=== PATIENT | male | born 1945 | race Caucasian/White ===

== ENCOUNTER → 2019-08-20 09:39 | Outpatient (CLI) | payer MEDICARE, SELFPAY ==
--- NOTE | 2019-08-20 09:44 | ART_ITS ---
Reason For Study: claudication Procedure A bilateral lower extremity continuous wave Doppler with analog waveform analysis,segmental pressures,and ankle brachial indexes with exercise. Left Segmental Pressures Left brachial= 179mmHg. Left calf = 221mmHg. Left posterior tibial artery = 156mmHg. Left dorsalis pedis artery = 172mmHg. The left dorsalis pedis waveforms are biphasic. The left ankle waveforms are triphasic. Right Segmental Pressures Right brachial= 174mmHg. Right posterior tibial artery = 234mmHg. Right dorsalis pedis artery = 233mmHg. The right dorsalis pedis waveforms are triphasic. The right posterior tibial artery waveforms are triphasic. Indices The right ankle brachial index by the dorsalis pedis is 1.3. The right ankle brachial index by the posterior tibial artery is 1.31. TREE DOCTOR post exercise is noncompressible. The left ankle brachial index by the dorsalis pedis is .96. The left ankle brachial index by the posterior tibial artery is .87. The left dorsalis pedis index post exercise is .98. Interpretation Summary Triphasic Doppler waveforms are noted at ankle level on the right. Triphasic and biphasic Doppler waveforms are noted at ankle level on the left. Pulse-volume recordings appear satisfactory at all levels bilaterally, including low-thigh, calf, ankle, and digital levels. Resting ankle-brachial indices are normal bilaterally. The patient was ambulated for 5 minutes at a brisk pace, following which ankle pressures were obtained. Ankle pressures were noted to augment bilaterally following exercise, which is a normal physiological response. There is no evidence of significant arterial occlusive disease in the lower extremities bilaterally. Ordering Physician: Tristin Hein Performed By: GIOVANNI HOLLIDAY RVT
--- NOTE | 2019-08-20 09:44 | VDLE_ITS ---
Reason For Study: superficial varicosities RIGHT LEFT CFV is compressible, spontaneous, phasic, CFV is compressible, spontaneous, phasic, competent and demonstrates normal competent, and demonstrates normal augmentation. augmentation. FV is compressible, spontaneous, phasic, FV is compressible, spontaneous, phasic, competent and demonstrates normal competent and demonstrates normal augmentation. augmentation. POP V is compressible, spontaneous, phasic, POP V is compressible, spontaneous, phasic, competent and demonstrates normal competent and demonstrates normal augmentation. augmentation. T/P Trunk is compressible. T/P Trunk is compressible. PTV is compressible. PTV is compressible. RT PerV is compressible. LT PerV is compressible. SFJ is competent and measures .62 x .6 cm. SFJ is competent and measures .58 x .62 cm. GSV proximal thigh measures .25 x .3 cm. GSV proximal thigh measures .32 x .32 cm. GSV above knee is INCOMPETENT for greater GSV above knee is INCOMPETENT for greater than 0.5 seconds. than 0.5 seconds. GSV at knee measures .32 x .35 cm. GSV at knee measures .24 x .27 cm. GSV below knee is INCOMPETENT for greater GSV below knee is INCOMPETENT for greater than 0.5 seconds. than 0.5 seconds. SSV proximal calf is competent and SSV proximal calf is competent and measures .32 x .3 cm. measures .39 x .34 cm. Procedure Exam performed in department. The exam was diagnostic. Interpretation Summary Deep veins of the lower extremities are bilaterally patent and compressible segmentally. There is no evidence of deep vein thrombosis on either side. Valvular competence appears intact within the proximal deep venous systems bilaterally. The great saphenous veins appear bilaterally patent and compressible segmentally. Sapheno-femoral junctions are bilaterally competent . Segmental valvular incompetence is noted within the great saphenous veins bilaterally. Small saphenous veins are patent and competent bilaterally. Ordering Physician: Tristin Hein Performed By: Cash Rodriguez RVT
== END ==
PROVIDERS: Referring Provider Student in an Organized Health Care Education/Training Program; Visit Provider Student in an Organized Health Care Education/Training Program
DX: I73.9 Peripheral vascular disease, unspecified (principal); I83.90 Asymptomatic varicose veins of unspecified lower extremity; I77.1 Stricture of artery; M79.604 Pain in right leg; M79.605 Pain in left leg
CPT/HCPCS: 93924; 93970

== ENCOUNTER 2020-04-26 06:29 | Outpatient (RCR) | payer MEDICARE, SELFPAY ==
[2017-10-25 15:05] VITALS: BMI 32.0
== END 2020-04-26 23:59 ==
LOC: IMMUN 06:29
PROVIDERS: Referring Provider Family Medicine; Visit Provider Family Medicine
DX: Z23 Encounter for immunization (principal)
CPT/HCPCS: 0011A; 0012A

== ENCOUNTER → 2021-02-10 08:01 | Outpatient (CLI) | payer MEDICARE, SELFPAY ==
[2021-02-10] VITALS (7 sets, daily range): BP systolic 127–154; BP diastolic 73–86; PULSE 87–106; RESP 16; TEMP 35.8–36.1; O2SAT 97–98; BMI 27.8
== END ==
PROVIDERS: Referring Provider Internal Medicine Hematology & Oncology; Visit Provider Internal Medicine Hematology & Oncology
DX: D64.81 Anemia due to antineoplastic chemotherapy (principal)
CPT/HCPCS: 36430; 86850; 86900; 86901; 86920; 86922; J7040; P9016; A4216

== ENCOUNTER 2021-04-19 22:34 | Inpatient (IN) | payer MEDICARE, SELFPAY ==
[2021-04-19 22:35] VITALS: BP 113/73; PULSE 104; RESP 18; TEMP 36.4; O2SAT 100; BMI 22.4
[2021-04-20] VITALS (28 sets, daily range): BP systolic 92–133; BP diastolic 58–89; PULSE 91–121; RESP 14–20; TEMP 36.3–37.3; O2SAT 93–100; BMI 24.4
--- NOTE | 2021-04-20 00:52 | EKG12_ITS ---
Test Reason : DYSRHYTHMIA Blood Pressure : / mmHG Vent. Rate : 100 BPM Atrial Rate : 100 BPM P-R Int : 192 ms QRS Dur : 132 ms QT Int : 394 ms P-R-T Axes : 059 -50 054 degrees QTc Int : 508 ms Sinus rhythm with occasional Premature ventricular complexes Right bundle branch block Left anterior fascicular block Bifascicular block Septal infarct , age undetermined Abnormal ECG Confirmed by ANANDA PEDROZA, SUSSY ([id number]), order editor IRENE FITZGERALD ([id number]) on 04/21/2021 8:22:37 AM Referred By: NATASHA Confirmed By:SUSSY MALAVE MD
--- NOTE | 2021-04-20 00:54 | ED.RN ---
Addendum entered by Jammie Holman 04/20/21 01:16: BEFORE ADMINISTERING FLEET ENEMA, CONFIRMED TREATMENT WAS NECESSARY DUE TO PATIENT HAVING BM PREVIOUS TO TREATMENT. PER SHELLEY, TREATMENT CONTINUED. Original Note: THIS RN ASSISTED PT TO BATHROOM WITH ONE ASSIST. ADMINISTERED 1 FLEET ENEMA. PT HAD RIO RED BLOOD AND DARK STOOL. ASSISTED PT TO SINK TO WASH HANDS. PT STATED HE WAS DIZZY AND THIS RN ASSISTED PATIENT TO FLOOR AFTER A BRIEF LOC. SHELLEY DONALD, AT PATIENT SIDE TO ASSIST BACK TO BED. PT BP 133/78, HR 103, 99%O2. WILL CONTINUE TO MONITOR.
[2021-04-20] MEDS: Fleet Enema 1 ML RC (01:02)
[2021-04-20] MEDS: 0.9% Normal Saline 1,000 ML 1000 ML IV (01:09)
[2021-04-20 01:18] LABS: Absolute Lymphocyte Count 1.94 X10^3/uL (0.83-4.51); Absolute Neutrophil Count 14.6 X10^3/uL (2.0-7.7); Basophil# 0.14 X10^3/uL; Basophil% 0.8 % (0-1); Eosinophil# 0.21 X10^3/uL; Eosinophils% 1.1 % (0-5); Hematocrit 18.8 % (40-54); Hemoglobin 6.1 g/dL (13.0-16.5); Lymphocyte # 1.94 X10^3/ul (0.83-4.51); Lymphocyte % 10.5 % (19-41); Mean Corp Hgb Conc 32.4 g/dL (32-36); Mean Corpuscular Hgb 34.7 pg (27.0-32.0); Mean Corpuscular Volume 106.8 fL (80-94); Mean Platelet Vol. 10.5 fl (6.2-12.0); Monocyte# 1.44 X10^3/uL; Monocyte% 7.8 % (0-10); NRBC Flagged by Analyzer 0 % (0-5); Neutrophil # 14.64 X10^3/uL (2.7-7.7); Neutrophil % 79.3 % (47-70); POSITIVE MORPHOLOGY YES; Platelet Count 233 K/mm3 (150-450); RBC Distribution Width CV 23.2 % (11.6-14.6); RBC Distribution Width SD 90.2 fl (35.1-43.9); Red Blood Count 1.76 M/mm3 (4.6-6.2); White Blood Count 18.5 K/mm3 (4.4-11.0)
[2021-04-20 01:27] LABS: International Normalized Ratio 1.3; Prothrombin Time (Protime)PT. 15.7 SECONDS (11.7-14.9)
[2021-04-20 01:29] LABS: Partial Thromboplast Time 62.4 Seconds (24.1-36.2)
[2021-04-20 01:36] LABS: Differential Indicated SCAN CRITERIA MET
[2021-04-20 01:37] LABS: Anisocytosis 3+
[2021-04-20 01:39] LABS: Anion Gap 8 (5-15); BUN 34 mg/dL (7-18); BUN/Creat Ratio 55.4 RATIO (10-20); Calcium,Total 9.1 mg/dL (8.5-10.1); Chloride 105 mmol/L (98-107); Creatinine, Serum 0.61 mg/dL (0.70-1.30); EST Glomerular Filtration Rate 135 mL/min (>60); Est Glom Filt Rate - Afr Amer 163 mL/min (>60); Estimated Creatinine Clearance 68.35 ml/min; Glucose 112 mg/dL (74-106); Potassium 3.7 mmol/L (3.5-5.1); Sodium Level 137 mmol/L (136-145)
[2021-04-20 01:44] LABS: Lactic Acid 3.1 mmol/L (0.4-1.9)
--- NOTE | 2021-04-20 02:17 | RAD_ITS ---
STUDY: X-RAY - ABDOMEN/PELVIS REASON FOR EXAM: Male, 76 years old. Tube placement -- with 20cc GASTROGRAFIN TECHNIQUE: Portable, supine, AP abdomen radiograph after administration of 40 cc diluted contrast via percutaneous enterostomy tube COMPARISON: None. RAD/Abdomen Single View IMPRESSION: PE tube projects over a loop of small bowel. Contrast is noted following loops of small bowel. No finding of extravasated contrast. Electronically Signed: Marcos Mtz MD at 2:49 EST ,
[2021-04-20] MEDS: 0.9% Normal Saline 1,000 ML 999 ML IV (02:58)
--- NOTE | 2021-04-20 03:33 | EDS_ITS ---
HPI History of Present Illness Chief Complaint: General Illness Informant: patient and spouse/S.O. Narrative Narrative: Patient presents after pulling out his J-tube. Patient has a history of stomach cancer with a mass noted at the GE junction. states that on March 24 he had surgery at the [facility] for a jejunostomy tube placement. At that time they also took out the stent that was in his distal esophagus. Tonight he was lying in bed with his tube feeds running. He got up to go to the bathroom not remembering that his tube feeds were running and pulled out the tube. does note that the patient is scheduled to receive 2 units of blood in transfusion this morning. She states the patient had lab work and CAT scans done at [facility] on the morning of the . She said Dr. Garrett believes the patient is slowly bleeding somewhere. PFSH PFS Medical History Claudication of both lower extremities Neuropathy PVD (peripheral vascular disease) Stomach cancer Home Medications finasteride 5 mg PO DAILY 09/28/17 [History Last Taken Unknown] lorazepam [Ativan] 2 mg PO PRN PRN 09/28/17 [History Last Taken Unknown] losartan 100 mg PO DAILY 09/28/17 [History Last Taken Unknown] tamsulosin 0.4 mg PO DAILY 09/28/17 [History Last Taken Unknown] Vivonex RTF 60 ml FEEDING TUBE CONT 04/20/21 [History Last Taken Unknown] Allergy/AdvReac Type Severity Reaction Status Date / Time lisinopril AdvReac Other Verified 04/19/21 22:36 Family History Mother Aneurysm Breast cancer Surgical History History of total knee replacement (TKR) Social History Smoking Status: Former smoker ROS ROS ED Constitutional Constitutional ED: Denies chills or fever(s) Eyes Eyes: Denies change in vision ENT ENT ED: Denies sore throat Cardiovascular Cardiovascular: Denies chest pain Respiratory/Chest Respiratory/Chest: Denies cough or dyspnea Gastrointestinal Gastrointestinal: Reports constipation; Denies abdominal pain, diarrhea, nausea or vomiting Genitourinary Genitourinary ED: Denies dysuria Musculoskeletal Musculoskeletal: Denies back pain or neck pain Integumentary Denies rash Neurologic Neurologic: Denies headache(s) or weakness Allergic/Immunologic Allergic/Immunologic ED: Denies urticaria EXAM Physical Exam Const Vital Signs: 04/19/21 22:35 04/20/21 00:52 04/20/21 00:58 Temperature 97.6 F L Temperature Source Temporal Pulse Rate 104 H 108 H Respiratory Rate 18 16 Respiratory Effort Normal Respiratory Pattern Normal Blood Pressure 113/73 133/78 H Blood Pressure Mean 86 96 Blood Pressure Source Blood Pressure Position Blood Pressure Location Pulse Ox 100 97 Oxygen Delivery Method Room Air Room Air 04/20/21 02:45 04/20/21 02:49 04/20/21 03:04 Temperature 97.5 F L 97.7 F L 98.2 F Temperature Source Temporal Temporal Oral Pulse Rate 112 H 102 H 100 Respiratory Rate 15 17 20 H Respiratory Effort Respiratory Pattern Blood Pressure 122/87 H 117/75 120/86 H Blood Pressure Mean 98 89 97 Blood Pressure Source Monitor Monitor Blood Pressure Position Supine Semi-Fowlers Blood Pressure Location Right Arm Left Arm Pulse Ox 98 99 99 Oxygen Delivery Method Room Air Room Air Room Air Positive cachectic General Appearance ED: cachectic and pallor Nutritional Appearance: cachectic HEENT Reports moist mucous membranes Eyes PERRL and EOMs intact bilaterally Neck supple Chest Wall inspection of chest normal and palpation of chest normal Resp normal respiratory effort and clear to auscultation bilaterally Cardio regular rate and regular rhythm GI non-tender GI Narrative: Jejunostomy site in the left mid abdomen nontender. Palpation: soft Extremity normal to inspection Neuro oriented x3 Sensorium / Orientation: alert Skin General Skin Exam: pallor MDM MDM MDM Narrative Medical decision making narrative: I initially spoke with our local surgeon who suggested patient needs to go to a facility with IR capabilities to have a jejunostomy tube replaced as it is only 3-1/2 weeks old. I spoke with surgeon at [facility]. He told me to go ahead and try placing a Johnston catheter. If there is any resistance not force it or if we cannot get it and call them back for transfer. Otherwise a Johnston catheter can be used in place of the jejunostomy tube and he can contact them to have it formally replaced. When I went back to the room to do this patient was in the restroom. Nursing staff notes that he had been in the bathroom for some time and felt constipated. They were asking if he could have a fleets enema. Nurse did go in to do this. She noted very dark tarry stool in the commode. After she gave the fleets enema he did pass some bright red blood as well. When he was standing at the sink washing his hands he then had a syncopal episode. On my arrival to the room patient was alert and lying on the floor. He was helped to his feet and back to bed. He was placed in the Trendelenburg position. EKG, lab work, IV fluids ordered. Lab Data Attestation: I reviewed the patient's lab results. Labs: Laboratory Results - last 24 hr 04/19/21 04/20/21 04/20/21 13:30 01:04 01:04 WBC 18.5 H RBC 1.76 L Hgb 6.1 L Hct 18.8 L MCV 106.8 H MCH 34.7 H MCHC 32.4 RDW Std Deviation 90.2 H RDW Coeff of Nora 23.2 H Plt Count 233 MPV 10.5 Immature Gran % (Auto) 0.500 Neut % (Auto) 79.3 H Lymph % (Auto) 10.5 L [place] % (Auto) 7.8 Eos % (Auto) 1.1 Baso % (Auto) 0.8 Absolute Neuts (auto) 14.6 H Absolute Lymphs (auto) 1.94 Nucleated RBC % 0 Anisocytosis 3+ PT 15.7 H INR 1.3 APTT 62.4 H Sodium Potassium Chloride Carbon Dioxide Anion Gap BUN Creatinine Estim Creat Clear Calc Est GFR (MDRD) Af Amer Est GFR (MDRD) Non-Af BUN/Creatinine Ratio Glucose Lactic Acid Calcium Blood Type O POSITIVE Antibody Screen NEGATIVE Crossmatch See Detail 04/20/21 04/20/21 01:04 01:04 WBC RBC Hgb Hct MCV MCH MCHC RDW Std Deviation RDW Coeff of Nora Plt Count MPV Immature Gran % (Auto) Neut % (Auto) Lymph % (Auto) [place] % (Auto) Eos % (Auto) Baso % (Auto) Absolute Neuts (auto) Absolute Lymphs (auto) Nucleated RBC % Anisocytosis PT INR APTT Sodium 137 Potassium 3.7 Chloride 105 Carbon Dioxide 24.0 Anion Gap 8 BUN 34 H Creatinine 0.61 L Estim Creat Clear Calc 68.35 Est GFR (MDRD) Af Amer 163 Est GFR (MDRD) Non-Af 135 BUN/Creatinine Ratio 55.4 H Glucose 112 H Lactic Acid 3.1 H* Calcium 9.1 Blood Type Antibody Screen Crossmatch Radiography Diagnostic Testing: Clinical Impression(s) from Imaging Studies KUB X-Ray 04/20/21 02:17 IMPRESSION: PE tube projects over a loop of small bowel. Contrast is noted following loops of small bowel. No finding of extravasated contrast. Electronically Signed: Marcos Mtz MD at 2:49 EST , Treatment and Re-Evaluation Comments:: Hemoglobin is low at 6.1. It was 6.2 yesterday morning when it was checked. White count was 16 yesterday and 18 today. Chemistry studies reveal elevated BUN at 34. Lactic acid 3.1. Patient is given IV fluid bolus. The 2 units of packed RBCs the patient was due to receive in the morning are available in our blood bank and we will transfuse these. I was able to place a 16 [place] Johnston catheter in his jejunostomy tube site. Gastrografin was placed through this and x-ray reveals good positioning. I spoke with Dr. Mary BARRERA. Patient will be given Protonix but is able to stay here at [place] for further treatment. I will speak with the hospitalist. Discharge Plan Dx/Rx/DC Orders Clinical Impression: GI bleed, Syncopal episodes Disposition Disposition: Acute Care [facility]
--- NOTE | 2021-04-20 03:57 | HP.PCM.HOS_ITS ---
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 Patient had an esophageal stent that was clogged so that was removed. A J-tube was then placed on March 24, 2021. The J-tube dislodged and patient came to the emergency department. At the emergent department because patient complained of constipation he was given an enema. The enema was productive for stool. Reportedly patient stool was dark and he had some blood. He passed out while washing his hands at the sink after defecating. Upon recommendation from patient's surgeon at [facility] a Johnston catheter was placed in the PEG tube hole and tested with Gastrografin/KUB. On the morning of the day of presentation patient's hemoglobin was 6.2 and patient was scheduled to received 2 units of blood. At the emergency department his hemoglobin was 6.1 and the 2 units of blood was subsequently ordered to be given at the ED [facility] Medical History Claudication of both lower extremities Neuropathy PVD (peripheral vascular disease) Stomach cancer Home Medications aspirin 81 mg PO DAILY@0800 09/28/17 [History Last Taken Unknown] finasteride 5 mg PO DAILY 09/28/17 [History Last Taken Unknown] ibuprofen [Ibu] 400 mg PO Q6H PRN 09/28/17 [History Last Taken Unknown] lorazepam [Ativan] 2 mg PO PRN PRN 09/28/17 [History Last Taken Unknown] losartan 100 mg PO DAILY 09/28/17 [History Last Taken Unknown] tamsulosin 0.4 mg PO DAILY 09/28/17 [History Last Taken Unknown] Allergy/AdvReac Type Severity Reaction Status Date / Time lisinopril AdvReac Other Verified 04/19/21 22:36 Family History Mother Aneurysm Breast cancer Surgical History History of total knee replacement (TKR) Social History Smoking Status: Former smoker ROS ROS Narrative Constitutional: Denies fever, chills, and change in weight Eyes: Denies blurry vision, change in eye color, change in vision, discharge from eye(s), double vision, erythema, eye pain, loss of vision or other HEENT: Denies abnormal hearing, dysphagia, ear pain, epistaxis, headache(s), hearing loss, nasal congestion, nasal discharge, post nasal drip, sinus pressure, sore throat or other Cardiovascular: Denies chest pain or palpitations. Denies dyspnea on exertion, orthopnea and paroxysmal nocturnal dyspnea Respiratory/Chest: Denies cough, excessive phlegm production, shortness of breath with exertion and wheezing Gastrointestinal: Reports constipation. With melena and hematochezia. Denies abdominal pain, coffee ground emesis, diarrhea, dyspepsia, hematemesis, hematochezia, loose stools, nausea, vomiting or other Genitourinary: Denies burning urination, difficulty urinating, dysuria, hematuria, nocturia, urinary frequency, urinary hesitancy, urinary incontinence, urinary urgency or other Musculoskeletal: Denies arthralgias, back pain, joint pain, joint stiffness, joint swelling, myalgias, neck pain or other Neurologic: Denies abnormal gait, abnormal speech, confusion, disequilibrium, dizziness, focal weakness, headache(s), numbness, paresthesias, seizure-like activity, seizures, syncope, tingling, tremor(s) or other Psychiatric: Denies anxiety, depression, homicidal ideation, suicidal ideation or other Endocrinology: Denies change in body appearance, cold intolerance, excessive sweating, heat intolerance, polydipsia, polyuria or other Hematologic/Lymphatic: Denies lymphadenopathy or other Integumentary: Denies rashes Allergic/Immunologic: Denies rhinitis, hives, eczema, asthma or other Vital Signs Vital Signs Vital Signs: 04/19/21 22:35 04/20/21 00:52 04/20/21 00:58 Temperature 97.6 F L Temperature Source Temporal Pulse Rate 104 H 108 H Respiratory Rate 18 16 Respiratory Effort Normal Respiratory Pattern Normal Blood Pressure 113/73 133/78 H Blood Pressure Mean 86 96 Blood Pressure Source Blood Pressure Position Blood Pressure Location Pulse Ox 100 97 Oxygen Delivery Method Room Air Room Air 04/20/21 02:45 04/20/21 02:49 04/20/21 03:04 Temperature 97.5 F L 97.7 F L 98.2 F Temperature Source Temporal Temporal Oral Pulse Rate 112 H 102 H 100 Respiratory Rate 15 17 20 H Respiratory Effort Respiratory Pattern Blood Pressure 122/87 H 117/75 120/86 H Blood Pressure Mean 98 89 97 Blood Pressure Source Monitor Monitor Blood Pressure Position Supine Semi-Fowlers Blood Pressure Location Right Arm Left Arm Pulse Ox 98 99 99 Oxygen Delivery Method Room Air Room Air Room Air 04/20/21 03:52 Temperature Temperature Source Pulse Rate 106 H Respiratory Rate 18 Respiratory Effort Respiratory Pattern Blood Pressure 116/79 Blood Pressure Mean 91 Blood Pressure Source Blood Pressure Position Blood Pressure Location Pulse Ox 98 Oxygen Delivery Method Room Air Weight Weight: 79.379 kg Body Mass Index (BMI) 22.4 Physical Exam Narrative Physical exam: General: Well-nourished, well-developed. Head: Normocephalic, atraumatic, no tenderness Eyes: PERRLA, EOMI ENT, no trauma, moist mucous membranes, no rhinorrhea Neck: Nontender, full range of motion, no spinal tenderness, deformities, step- off CVS: Tachycardia. S1-S2 present. No murmur, gallop or rub. Respiratory : clear to auscultation bilaterally, chest wall nontender, no wheezing Abdomen: Soft, nontender, nondistended, normal bowel sounds, no masses : Deferred Back: Nontender, no CVA tenderness, no midline spinal tenderness, deformities, step-offs Extremities: Nontender full range of motion, no trauma Skin: Pallor, no trauma, abrasions Neuro: Alert, oriented, cranial nerves II through XII grossly intact. Psychiatry: Normal mood. Normal affect. Not depressed. Not anxious. Results Lab / Micro Data Result Diagrams: 04/20/21 01:04 04/20/21 01:04 Labs: Laboratory Results - last 24 hr 04/19/21 13:30: Blood Type O POSITIVE, Antibody Screen NEGATIVE, Crossmatch See Detail 04/20/21 01:04: WBC 18.5 H, RBC 1.76 L, Hgb 6.1 L, Hct 18.8 L, MCV 106.8 H, MCH 34.7 H, MCHC 32.4, RDW Std Deviation 90.2 H, RDW Coeff of Nora 23.2 H, Plt Count 233, MPV 10.5, Immature Gran % (Auto) 0.500, Neut % (Auto) 79.3 H, Lymph % (Auto) 10.5 L, [place] % (Auto) 7.8, Eos % (Auto) 1.1, Baso % (Auto) 0.8, Absolute Neuts (auto) 14.6 H, Absolute Lymphs (auto) 1.94, Nucleated RBC % 0, Anisocyt osis 3+ 04/20/21 01:04: PT 15.7 H, INR 1.3, APTT 62.4 H 04/20/21 01:04: Sodium 137, Potassium 3.7, Chloride 105, Carbon Dioxide 24.0, Anion Gap 8, BUN 34 H, Creatinine 0.61 L, Estim Creat Clear Calc 68.35, Est GFR (MDRD) Af Amer 163, Est GFR (MDRD) Non-Af 135, BUN/Creatinine Ratio 55.4 H, Glucose 112 H, Calcium 9.1 04/20/21 01:04: Lactic Acid 3.1 H* Micro: Microbiology 04/19/21 23:33 Nasal Secretion SARS-CoV-2 Antigen (Rapid) - Final Radiology Impression KUB X-Ray 04/20/21 02:17 IMPRESSION: PE tube projects over a loop of small bowel. Contrast is noted following loops of small bowel. No finding of extravasated contrast. Electronically Signed: Marcos Mtz MD at 2:49 EST , Assessment & Plan Assessment/Plan (1) Acute blood loss anemia: (2) Monoclonal gammopathies: (3) GI bleed: QUALIFIERS: GI bleed type/associated pathology: melena Qualified Code(s): K92.1 - Melena (4) Cancer of cardia: PLAN: Acute blood loss anemia Hemoglobin on presentation was 6.1. MCV is 106.8. Patient follows up with oncology. INR is 1.3. Admit to monitored bed on MedSurg 2 units of blood ordered at the ED. Repeat H&H 1 hour after second unit of blood has been transfused. Protonix ordered. Emergency further discussed the case with GI. GI consult placed. Will keep n.p.o. for now. Syncope Like secondary to GI bleed. Received fluid hydration at the emergency department. Blood transfusion as above. Hold home blood pressure medications. Malfunction of PEG tube PEG tube replaced at the emergency department. Follow-up KUB was visualized and independently interpreted. Contrast seen loops of small bowel. Leukocytosis Review of labs showed white count of 18.5. Likely reactive. Trend CBC. Cancer of cardia Patient follows up Dr. Garrett and reportedly has an appointment 04/20/2021. Consider discussing with Dr. Garrett as needed. DVT prophylaxis: SCDs ordered. Charges/Coding Visit Charges Inpatient E&M: 25732 Init Hosp L3
[2021-04-20 05:13] LABS: Reflex Lactate? Y
[2021-04-20 07:27] LABS: Lactic Acid 1.3 mmol/L (0.4-1.9)
--- NOTE | 2021-04-20 08:12 | PN.HOSP_ITS ---
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 Patient was found to have hemoglobin of 6.1 with melenic stools. Admitted to a monitored bed with consultation placed to GI Objective Data Objective Data Vital Signs: Vital Signs Temp Pulse Resp BP Pulse Ox 97.9 F 121 H 18 99/61 99 04/20/21 07:51 04/20/21 07:51 04/20/21 07:51 04/20/21 07:51 04/20/21 07:51 Oxygen Delivery Method Room Air Weight: 86.364 kg Body Mass Index (BMI) 24.4 Intake & Output: Intake and Output for Last 24 Hours 04/18/21 04/19/21 04/20/21 23:59 23:59 23:59 Intake Total 2510 / 2510 Balance 2510 / 2510 Lab / Micro Data Result Diagrams: 04/20/21 14:31 04/20/21 01:04 Labs: Laboratory Results - last 24 hr 04/19/21 13:30: Blood Type O POSITIVE, Antibody Screen NEGATIVE, Crossmatch See Detail 04/20/21 01:04: WBC 18.5 H, RBC 1.76 L, Hgb 6.1 L, Hct 18.8 L, MCV 106.8 H, MCH 34.7 H, MCHC 32.4, RDW Std Deviation 90.2 H, RDW Coeff of Nora 23.2 H, Plt Count 233, MPV 10.5, Immature Gran % (Auto) 0.500, Neut % (Auto) 79.3 H, Lymph % (Auto) 10.5 L, Kidder % (Auto) 7.8, Eos % (Auto) 1.1, Baso % (Auto) 0.8, Absolute Neuts (auto) 14.6 H, Absolute Lymphs (auto) 1.94, Nucleated RBC % 0, Anisocytosis 3+ 04/20/21 01:04: PT 15.7 H, INR 1.3, APTT 62.4 H 04/20/21 01:04: Sodium 137, Potassium 3.7, Chloride 105, Carbon Dioxide 24.0, Anion Gap 8, BUN 34 H, Creatinine 0.61 L, Estim Creat Clear Calc 68.35, Est GFR (MDRD) Af Amer 163, Est GFR (MDRD) Non-Af 135, BUN/Creatinine Ratio 55.4 H, Glucose 112 H, Calcium 9.1 04/20/21 01:04: Lactic Acid 3.1 H* 04/20/21 06:40: Lactic Acid 1.3 Micro: Microbiology 04/19/21 23:33 Nasal Secretion SARS-CoV-2 Antigen (Rapid) - Final Radiography Diagnostic Testing: Radiology Impression KUB X-Ray 04/20/21 02:17 IMPRESSION: PE tube projects over a loop of small bowel. Contrast is noted following loops of small bowel. No finding of extravasated contrast. Electronically Signed: Marcos Mtz MD at 2:49 EST , Physical Exam Narrative GENERAL: cooperative HEENT: Atraumatic; EYES; Anicteric, Normal Conjunctiva NECK; supple, normal thyroid, RESPIRATORY: Diminished to auscultation CARDIOVASCULAR: Regular S1 S2, GI: Feeding tube in situ (Johnston catheter) : No Renal angle tenderness; EXTREMITIES: No edema, no clubbing, MUSCULOSKELETAL: no muscle wasting NEURO: Awake; no lateralizing signs. 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 Patient was found to have hemoglobin of 6.1 with melenic stools. Admitted to a monitored bed with consultation placed to GI 1. Acute on chronic blood loss anemia as a result of patient underlying GI malignancy ?Patient hemoglobin on admission was 6.1. Consult was placed to GI patient unde rwent EGD by Dr. Hernandez on 04/20/2021 which demonstrated Completely obstructing, malignant esophageal tumor was found in the lower third of the esophagus. 2. Malfunctioning jejunostomy tube ?Patient surgeon at [facility] was contacted from the ED recommended placement of a Johnston catheter. Plan is to check with GI if okay for refeeding 3. Esophageal gastric adenocarcinoma of the esophageal GE junction -currently on chemo 4. History of aortic valve disease ?Aortic valve replacement 5. BPH ?Patient is on tamsulosin as well as finasteride continue 6. Hypertension - Blood pressure controlled, home medications continued with dose adjustment as needed 7. DVT prophylaxis ?SCDs only Charges/Coding Visit Charges Inpatient E&M: 19367 Subs Hosp L2
[2021-04-20] MEDS: Lactated Ringers 1,000 ML 15 ML IV (11:04)
--- NOTE | 2021-04-20 11:49 | CON.PCM.GI_ITS ---
HPI Consult Data Date of Consult: 04/20/21 HPI Narrative HPI Narrative: ANA RANGEL, is a 76 M who presents to the ED after his recently placed jejunostomy tube became dislodged. He has a past medical history significant for aortic valve replacement on anticoagulation and a esophagogastric adenocarcinoma of the esophagus and GE junction. He is currently on chemotherapy and he did receive radiation. While the patient was in the ED he passed out after having multiple episodes of black melanotic stool. His hemoglobin was determined to be 6.2 and on repeat it was 6.1. I was called for and management endoscopic evaluation. His J-tube was replaced with a 14 [place] Johnston catheter and is in place and is functioning well. All other 16 review of systems are negative except those pertinent positive mentioned HPI PFSH Medical History Claudication of both lower extremities Neuropathy PVD (peripheral vascular disease) Stomach cancer Home Medications aspirin 81 mg PO DAILY@0800 09/28/17 [History Last Taken Unknown] finasteride 5 mg PO DAILY 09/28/17 [History Last Taken Unknown] ibuprofen [Ibu] 400 mg PO Q6H PRN 09/28/17 [History Last Taken Unknown] lorazepam [Ativan] 2 mg PO PRN PRN 09/28/17 [History Last Taken Unknown] losartan 100 mg PO DAILY 09/28/17 [History Last Taken Unknown] tamsulosin 0.4 mg PO DAILY 09/28/17 [History Last Taken Unknown] Allergy/AdvReac Type Severity Reaction Status Date / Time lisinopril AdvReac Other Verified 04/19/21 22:36 Family History Mother Aneurysm Breast cancer Surgical History History of total knee replacement (TKR) Social History Smoking Status: Former smoker ROS Gastrointestinal Gastrointestinal: Reports melena Physical Exam Const alert General Appearance: cooperative Orientation / Consciousness: oriented to person HEENT hearing grossly normal bilaterally Head and Scalp: normal to inspection Face and Sinus: face symmetric Nose: external nose normal Mouth: oral and palatal mucosa normal Eyes conjunctivae normal General Eye: normal appearance of both eyes Neck full ROM General: normal visual inspection Lymph Lymphatic: no lymphadenopathy noted Chest inspection of chest normal and palpation of chest normal Chest: symmetrical chest wall rise Resp normal respiratory effort Effort and Inspection: able to speak in complete sentences Cardio regular rate GI non-distended GI Narrative: Jejunostomy tube in place Percussion: normal to percussion Rectal Exam: deferred Neuro Speech: speech normal Gait (Neuro): normal gait Lab / Micro Data Result Diagrams: 04/20/21 01:04 04/20/21 01:04 Labs: Laboratory Results - last 24 hr 04/19/21 13:30: Blood Type O POSITIVE, Antibody Screen NEGATIVE, Crossmatch See Detail 04/20/21 01:04: WBC 18.5 H, RBC 1.76 L, Hgb 6.1 L, Hct 18.8 L, MCV 106.8 H, MCH 34.7 H, MCHC 32.4, RDW Std Deviation 90.2 H, RDW Coeff of Nora 23.2 H, Plt Count 233, MPV 10.5, Immature Gran % (Auto) 0.500, Neut % (Auto) 79.3 H, Lymph % (Auto) 10.5 L, Alfalfa % (Auto) 7.8, Eos % (Auto) 1.1, Baso % (Auto) 0.8, Absolute Neuts (auto) 14.6 H, Absolute Lymphs (auto) 1.94, Nucleated RBC % 0, Anisocytosis 3+ 04/20/21 01:04: PT 15.7 H, INR 1.3, APTT 62.4 H 04/20/21 01:04: Sodium 137, Potassium 3.7, Chloride 105, Carbon Dioxide 24.0, Anion Gap 8, BUN 34 H, Creatinine 0.61 L, Estim Creat Clear Calc 68.35, Est GFR (MDRD) Af Amer 163, Est GFR (MDRD) Non-Af 135, BUN/Creatinine Ratio 55.4 H, Glucose 112 H, Calcium 9.1 04/20/21 01:04: Lactic Acid 3.1 H* 04/20/21 06:40: Lactic Acid 1.3 Micro: Microbiology 04/19/21 23:33 Nasal Secretion SARS-CoV-2 Antigen (Rapid) - Final Radiology Impression KUB X-Ray 04/20/21 02:17 IMPRESSION: PE tube projects over a loop of small bowel. Contrast is noted following loops of small bowel. No finding of extravasated contrast. Electronically Signed: Marcos Mtz MD at 2:49 EST , Assessment & Plan Assessment/Plan (1) GI bleed: QUALIFIERS: GI bleed type/associated pathology: melena Qualified Code(s): K92.1 - Melena PLAN: UGI bleed likely secondary to his already diagnosed of upper GI tract cancer of the esophagus. With his is tachycardia and elevated BUN creatinine ratio he should undergo an emergent upper endoscopy to evaluate his upper GI tract. He was explained alternatives, risk, benefits including not withstanding bleeding, infection, sepsis, perforation, need for emergent surgery . He will have an ASA of three. Charges/Coding Visit Charges Inpatient E&M: 18564 Init Hosp L2
--- NOTE | 2021-04-20 12:10 | OP.EGD_ITS ---
Patient Name: Sree Wiggins Procedure Date: 04/20/2021 11:09 AM Date of : 1945 Age: 76 Procedure: Upper GI endoscopy Indications: Melena Providers: Jose Francisco Hernandez DO Medicines: See the Anesthesia note for documentation of the administered medications Patient Profile: This is a 76 year old male. Refer to note in patient chart for documentation of history and physical. Patient has symptoms. Complications: No immediate complications. Procedure: Pre-Anesthesia Assessment: - Prior to the procedure, a History and Physical was performed, and patient medications and allergies were reviewed. The risks and benefits of the procedure and the sedation options and risks were discussed with the patient. All questions were answered and informed consent was obtained. Patient identification and proposed procedure were verified by the physician in the pre-procedure area. Mental Status Examination: alert and oriented. Airway Examination: normal oropharyngeal airway and neck mobility. Respiratory Examination: clear to auscultation. CV Examination: normal. Prophylactic Antibiotics: The patient does not require prophylactic antibiotics. Prior Anticoagulants: The patient has taken no previous anticoagulant or antiplatelet agents. ASA Grade Assessment: II - A patient with mild systemic disease. After reviewing the risks and benefits, the patient was deemed in satisfactory condition to undergo the procedure. The anesthesia plan was to use moderate sedation / analgesia (conscious sedation). Immediately prior to administration of medications, the patient was re-assessed for adequacy to receive sedatives. The heart rate, respiratory rate, oxygen saturations, blood pressure, adequacy of pulmonary ventilation, and response to care were monitored throughout the procedure. The physical status of the patient was re-assessed after the procedure. After obtaining informed consent, the endoscope was passed under direct vision. Throughout the procedure, the patient's blood pressure, pulse, and oxygen saturations were monitored continuously. The Endoscope was introduced through the mouth, and advanced to the lower third of esophagus. The upper GI endoscopy was extremely difficult due to a partially obstructing mass. The patient tolerated the procedure well. Moderate Sedation: Moderate (conscious) sedation was administered by the endoscopy nurse and supervised by the endoscopist. The patient's oxygen saturation, heart rate, blood pressure and response to care were monitored. Total physician intraservice time was 15 minutes. Scope In: 12:00:40 PM Scope Out: 12:05:32 PM Total Procedure Duration Time 0 hours 4 minutes 52 seconds Findings: A large, ulcerating mass with no bleeding and stigmata of recent bleeding was found in the lower third of the esophagus, 37 cm from the incisors. The mass was completely obstructing and circumferential. Impression: - Completely obstructing, malignant esophageal tumor was found in the lower third of the esophagus. - No specimens collected. Recommendation: - [facility]. - Resume previous diet. - Continue present medications. Procedure Code(s): --- Professional --- 53369, Esophagoscopy, flexible, transoral; diagnostic, including collection of specimen(s) by brushing or washing, when performed (separate procedure) 92185, 59, Moderate sedation services provided by the same physician or other qualified health customer care consultant performing the diagnostic or therapeutic service that the sedation supports, requiring the presence of an independent trained observer to assist in the monitoring of the patient's level of consciousness and physiological status; initial 15 minutes of intraservice time, patient age 5 years or older CPT copyright 2017 [employer] [place] [employer]. All rights reserved. The codes documented in this report are preliminary and upon synthetic chemist review may be revised to meet current compliance requirements. Jose Francisco Hernandez DO 04/20/2021 12:09:57 PM This report has been signed electronically. Number of Addenda: 1 Note Initiated On: 04/20/2021 11:09 AM Addendum Number: 1 Addendum Date: 11/14/2021 6:39:20 AM MAC was used for sedation during this procedure. Jose Francisco Hernandez DO 11/14/2021 6:39:24 AM This report has been signed electronically.
--- NOTE | 2021-04-20 12:10 | OP.CCLET_ITS ---
11/14/2021 Kristin Miramontes Re : Upper GI endoscopy procedure for Sree Wiggins Dear Kulwinder This procedure was performed on Tuesday, April 20, 2021. My impressions and recommendations are as follows: Impressions : - Completely obstructing, malignant esophageal tumor was found in the lower third of the esophagus. - No specimens collected. Recommendations : - [facility]. - Resume previous diet. - Continue present medications. My findings are described in the full procedure note, which is enclosed. If I can be of further assistance, please feel free to contact me at . Sincerely, Jose Francisco Hernandez, 04/20/2021 12:09:57 PM This report has been signed electronically.
--- NOTE | 2021-04-20 13:10 | CASEMGMT ---
DOMINGA DE PAZ Face to Face with patient for initial transition planning/care coordination assessment. RN CM introduced self and role at [facility]. Patient lying in bed, alert and oriented, at bedside. Patient willing to participate in assessment and is able to answer all questions appropriately. Care providers, pharmacy, and demographics verified. Patient wishes to discharge home with resumption of HHC through [facility]. Patient states he has no further needs or concerns at this time. CM to follow for discharge planning needs that may arise. PCP: Kulwinder Specialists: Mary, GI; Gonzalo Garrett, oncologist; Maria A, surgeon, [facility]. Preferred Pharmacy: [facility] Insurance: [employer] Prescription Benefit: yes Living Will/HPOA: yes, Charity Wiggins LNOK: Living Arrangements: Patient lives with in a single story home with 3 steps and railing to enter the home. Patient is independent for toileting and dressing, assists with bathing. Transportation: DME/HHC: Patient states he has raised toilet, walker, wheelchair, hospital bed, and kangaroo pump at home. Patient is active with [facility]. Disposition Plan: Patient to discharge home with resumption of HHC, family support, and follow-up plans in place. Jammie KENDRICK, RN, CM
--- NOTE | 2021-04-20 14:22 | CASEMGMT ---
Palliative screening tool completed at this time. Patient and interested in palliative services. Hospitalist updated and order received for referral. DOMINGA DE PAZ sent referral to [facility] at this time.
[2021-04-20 14:42] LABS: Hematocrit 24.6 % (40-54); Hemoglobin 8.4 g/dL (13.0-16.5)
[2021-04-21 02:03] VITALS: BP 107/67; PULSE 102; RESP 16; TEMP 36.7; O2SAT 99
[2021-04-21 04:00] VITALS: PULSE 106
[2021-04-21 05:20] LABS: Absolute Lymphocyte Count 1.18 X10^3/uL (0.83-4.51); Absolute Neutrophil Count 12.3 X10^3/uL (2.0-7.7); Basophil# 0.12 X10^3/uL; Basophil% 0.8 % (0-1); Eosinophil# 0.49 X10^3/uL; Eosinophils% 3.1 % (0-5); Hemoglobin 8.5 g/dL (13.0-16.5); Lymphocyte # 1.18 X10^3/ul (0.83-4.51); Lymphocyte % 7.5 % (19-41); Mean Platelet Vol. 10.8 fl (6.2-12.0); Monocyte# 1.52 X10^3/uL; Monocyte% 9.7 % (0-10); NRBC Flagged by Analyzer 0 % (0-5); Neutrophil # 12.26 X10^3/uL (2.7-7.7); Neutrophil % 78.4 % (47-70); POSITIVE DIFFERENTIAL YES; POSITIVE MORPHOLOGY YES; Platelet Count 213 K/mm3 (150-450); RBC Distribution Width CV 22.7 % (11.6-14.6); RBC Distribution Width SD 79.7 fl (35.1-43.9); White Blood Count 15.7 K/mm3 (4.4-11.0)
[2021-04-21 05:24] LABS: Differential Indicated SCAN CRITERIA MET
[2021-04-21 05:40] LABS: Anion Gap 6 (5-15); BUN 25 mg/dL (7-18); BUN/Creat Ratio 49.9 RATIO (10-20); Calcium,Total 7.9 mg/dL (8.5-10.1); Chloride 110 mmol/L (98-107); EST Glomerular Filtration Rate 171 mL/min (>60); Est Glom Filt Rate - Afr Amer 206 mL/min (>60); Estimated Creatinine Clearance 70.78 ml/min; Glucose 113 mg/dL (74-106); Potassium 3.6 mmol/L (3.5-5.1); Sodium Level 140 mmol/L (136-145)
[2021-04-21 05:41] LABS: Anisocytosis 3+; Macrocytosis 1+
[2021-04-21 07:00] VITALS: PULSE 107
--- NOTE | 2021-04-21 07:43 | PCM.PN.HOSP ---
Subjective Subjective Patient feeding tube also declined monthly. A new Johnston catheter was placed and 20 cc of saline injected into the bulb. Subsequent imaging studies obtained did show The tip of the gastric tube is within the proximal jejunal loop tube feeding resumed. Objective Data Objective Data Vital Signs: Vital Signs Temp Pulse Resp BP Pulse Ox 98.1 F 107 H 16 107/67 99 04/21/21 02:03 04/21/21 07:00 04/21/21 02:03 04/21/21 02:03 04/21/21 02:03 Oxygen Flow Rate (L/min) 2 Oxygen Delivery Method Room Air Weight: 86.4 kg Body Mass Index (BMI) 24.4 Intake & Output: Intake and Output for Last 24 Hours 04/19/21 04/20/21 04/21/21 23:59 23:59 23:59 Intake Total 2776.5 / 2776.5 416 / 416 Output Total 375 / 525 275 / 275 Balance 2401.5 / 2251.5 141 / 141 Lab / Micro Data Result Diagrams: 04/21/21 04:45 04/21/21 04:45 Labs: Laboratory Results - last 24 hr 04/19/21 13:30: Crossmatch See Detail 04/20/21 14:31: Hgb 8.4 L, Hct 24.6 L 04/21/21 04:45: WBC 15.7 H, RBC 2.50 L, Hgb 8.5 L, Hct 25.0 L, MCV 100.0 H D, MCH 34.0 H, MCHC 34.0, RDW Std Deviation 79.7 H, RDW Coeff of Nora 22.7 H, Plt Count 213, MPV 10.8, Immature Gran % (Auto) 0.500, Neut % (Auto) 78.4 H, Lymph % (Auto) 7.5 L, Hudson % (Auto) 9.7, Eos % (Auto) 3.1, Baso % (Auto) 0.8, Absolute Neuts (auto) 12.3 H, Absolute Lymphs (auto) 1.18, Nucleated RBC % 0, Diff Path Review May foll, Anisocytosis 3+, Macrocytosis 1+ 04/21/21 04:45: Sodium 140, Potassium 3.6, Chloride 110 H, Carbon Dioxide 24.0, Anion Gap 6, BUN 25 H, Creatinine 0.50 L, Estim Creat Clear Calc 70.78, Est GFR (MDRD) Af Amer 206, Est GFR (MDRD) Non-Af 171, BUN/Creatinine Ratio 49.9 H, Glucose 113 H, Calcium 7.9 L Micro: Microbiology 04/19/21 23:33 Nasal Secretion SARS-CoV-2 Antigen (Rapid) - Final Physical Exam Narrative GENERAL: cooperative HEENT: Atraumatic; EYES; Anicteric, Normal Conjunctiva NECK; supple, normal thyroid, RESPIRATORY: Diminished to auscultation CARDIOVASCULAR: Regular S1 S2, GI: Feeding tube in situ (Johnston catheter) : No Renal angle tenderness; EXTREMITIES: No edema, no clubbing, MUSCULOSKELETAL: no muscle wasting NEURO: Awake; no lateralizing signs. 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 Patient was found to have hemoglobin of 6.1 with melenic stools. Admitted to a monitored bed with consultation placed to GI 1. Acute on chronic blood loss anemia as a result of patient underlying GI malignancy ?Patient hemoglobin on admission was 6.1. Consult was placed to GI patient underwent EGD by Dr. Hernandez on 04/20/2021 which demonstrated Completely obstructing, malignant esophageal tumor was found in the lower third of the esophagus. -04/19/2023; hemoglobin up to 8.5 subsequent monitoring with serial H&H ordered 2. Malfunctioning jejunostomy tube ?Patient surgeon at [facility] was contacted from the ED recommended placement of a Johnston catheter. Plan is to check with GI if okay for refeeding -04/21/2021; Patient feeding tube also declined monthly. A new Johnston catheter was placed and 20 cc of saline injected into the bulb. Subsequent imaging studies obtained did show The tip of the gastric tube is within the proximal jejunal loop tube. Patient tube feeding resumed with plans to observe patient for 1 additional day 3. Esophageal gastric adenocarcinoma of the esophageal GE junction -currently on chemo 4. History of aortic valve disease ?Aortic valve replacement 5. BPH ?Patient is on tamsulosin as well as finasteride continue 6. Hypertension - Blood pressure controlled, home medications continued with dose adjustment as needed 7. DVT prophylaxis ?SCDs only 8. Leukocytosis ?[place] to be reactive trending daily CBC patient currently has no fever no chills Charges/Coding Visit Charges Inpatient E&M: 50932 [facility] Hosp L3
[2021-04-21 08:00] VITALS: BP 112/76; PULSE 102; RESP 16; TEMP 36.4; O2SAT 100
[2021-04-21 08:05] VITALS: O2SAT 69
--- NOTE | 2021-04-21 09:24 | RAD_ITS ---
STUDY: X-RAY - ABDOMEN/PELVIS REASON FOR EXAM: Male, 76 years old. Gastric tube placement . GASTROGRAFIN was injected into the indwelling PEG tube. TECHNIQUE: Single AP view of the abdomen / pelvis. COMPARISON: None. FINDINGS: Contrast is seen within the jejunal loops in the left upper quadrant. Prior injection of contrast is now seen in the transverse colon. RAD/Abdomen Single View IMPRESSION: The tip of the gastric tube is within the proximal jejunal loop. Electronically Signed: Chalo Avila MD at 10:46 EST ,
--- NOTE | 2021-04-21 12:06 | DS.PCM_ITS ---
Providers Date of Admission: 04/20/21 Primary Care Physician: Dr. Kristin Miramontes, DO Consultations 04/20/21 05:52 Consult: Gastroenterology Routine Consulting Provider: Jose Francisco Hernandez Reason for Consult: ABLA EMERGENT Consult: No MD Notified: Yes Date Notified: 04/20/21 Time Notified: 07:06 Method of Notification: Text Method of Consult:: In-Person Reason For Visit: ACUTE BLOOD LOSS, ANEMIA Diagnosis Discharge Diagnosis (1) Acute blood loss anemia: Status: Acute Code(s): D62 - Acute posthemorrhagic anemia (2) Monoclonal gammopathies: Status: Chronic Code(s): D47.2 - Monoclonal gammopathy (3) GI bleed: Status: Acute Code(s): K92.2 - Gastrointestinal hemorrhage, unspecified Qualifiers: GI bleed type/associated pathology: melena Qualified Code(s): K92.1 - Melena (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 Acute on chronic blood loss anemia as a result of patient underlying GI malignancy ?Patient hemoglobin on admission was 6.1. Consult was placed to GI patient underwent EGD by Dr. Hernandez on 04/20/2021 which demonstrated Completely obstructing, malignant esophageal tumor was found in the lower third of the esophagus. -04/19/2023; hemoglobin up to 8.5 subsequent monitoring with serial H&H ordered 2. Malfunctioning jejunostomy tube ?Patient surgeon at [facility] was contacted from the ED recommended placement of a Fo sean catheter. Plan is to check with GI if okay for refeeding -04/21/2021; Patient feeding tube also declined monthly. A new Johnston catheter was placed and 20 cc of saline injected into the bulb. Subsequent imaging studies obtained did show The tip of the gastric tube is within the proximal jejunal loop tube. Patient tube feeding resumed with plans to observe patient for 1 additional day 3. 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 Garrett. Patient was discharged home with hospice 4. History of aortic valve disease ?Aortic valve replacement 5. BPH ?Patient is on tamsulosin as well as finasteride continue 6. Hypertension - Blood pressure controlled, home medications continued with dose adjustment as needed 7. DVT prophylaxis ?SCDs only 8. Leukocytosis ?Virden to be reactive trending daily CBC patient currently has no fever no chills Physical Exam Narrative GENERAL: cooperative HEENT: Atraumatic; EYES; Anicteric, Normal Conjunctiva NECK; supple, normal thyroid, RESPIRATORY: Diminished to auscultation CARDIOVASCULAR: Regular S1 S2, GI: Feeding tube in situ (Johnston catheter) : No Renal angle tenderness; EXTREMITIES: No edema, no clubbing, MUSCULOSKELETAL: no muscle wasting NEURO: Awake; no lateralizing signs. SKIN: No Rash PSYCH; Flat affect Weight / BMI Weight Weight: 86.4 kg Body Mass Index (BMI) 24.4 ABG / Lab / Microbiology Data Result Diagrams: 04/21/21 04:45 04/21/21 04:45 Laboratory: Laboratory Results - last 24 hr 04/20/21 14:31: Hgb 8.4 L, Hct 24.6 L 04/21/21 04:45: WBC 15.7 H, RBC 2.50 L, Hgb 8.5 L, Hct 25.0 L, MCV 100.0 H D, MCH 34.0 H, MCHC 34.0, RDW Std Deviation 79.7 H, RDW Coeff of Nora 22.7 H, Plt Count 213, MPV 10.8, Immature Gran % (Auto) 0.500, Neut % (Auto) 78.4 H, Lymph % (Auto) 7.5 L, [place] % (Auto) 9.7, Eos % (Auto) 3.1, Baso % (Auto) 0.8, Absolute Neuts (auto) 12.3 H, Absolute Lymphs (auto) 1.18, Nucleated RBC % 0, Diff Path Review May foll, Anisocytosis 3+, Macrocytosis 1+ 04/21/21 04:45: Sodium 140, Potassium 3.6, Chloride 110 H, Carbon Dioxide 24.0, Anion Gap 6, BUN 25 H, Creatinine 0.50 L, Estim Creat Clear Calc 70.78, Est GFR (MDRD) Af Amer 206, Est GFR (MDRD) Non-Af 171, BUN/Creatinine Ratio 49.9 H, Glucose 113 H, Calcium 7.9 L Microbiology: Microbiology 04/19/21 23:33 Nasal Secretion SARS-CoV-2 Antigen (Rapid) - Final Radiography Diagnostic Testing: Radiology Impression KUB X-Ray 04/21/21 09:24 IMPRESSION: The tip of the gastric tube is within the proximal jejunal loop. Electronically Signed: Chalo Avila MD at 10:46 EST , D/C Instructions Discharge Diet: - (Via feeding tube) Discharge Activity: Return to Normal Activity Call your doctor if you observe: Fever of 101 or Higher, Shortness of breath, Fainting spells and Chest pain Meaningful Use Info Meaningful Use Diagnoses (Choose all that apply): None applicable Discharge Plan Admission Admit Date/Time: 04/20/21 04:14 Attending Provider: Jeremy Diaz Primary Care Provider: Kristin Miramontes Consulting Providers: Jose Francisco Hernandez Discharge Orders/Prescriptions Prescriptions: Continued tamsulosin 0.4 MG capsule 0.4 mg PO DAILY RF: 0 lorazepam [Ativan] 2 MG tablet 2 mg PO PRN PRN (Reason: Anxiety) RF: 0 losartan 100 MG tablet 100 mg PO DAILY RF: 0 finasteride 5 MG tablet 5 mg PO DAILY RF: 0 Vivonex RTF 0.05-1 gram-kcal/mL Liquid 60 ml feeding tube CONT RF: 0 Discontinued ibuprofen [IBU] 400 MG tablet 400 mg PO Q6H PRN (Reason: Pain) RF: 0 aspirin 81 MG tablet,chewable 81 mg PO DAILY@0800 RF: 0 Referrals / Follow Up: Kristin Miramontes DO [Primary Care Provider] - Within 2 Weeks Marcos Garrett DO [STAFF PHYSICIAN] - In 1 Week Disposition Disposition (needs filled in before D/C Order can be placed): Hospice in Home Charges/Coding Visit Charges Inpatient E&M: 32106 Disch Hosp
--- NOTE | 2021-04-21 13:24 | CASEMGMT ---
Per Dr. Diaz, Dr. Garrett's office is setting up hospice for pt at home. [facility] called in and they are aware of Hospice at home. Lise ORR CM
[2021-04-21 13:25] VITALS: BP 133/80; PULSE 107; RESP 18; TEMP 36.6; O2SAT 99
--- NOTE | 2021-04-21 13:25 | CASEMGMT ---
GALLO was informed patient will be going home on Hospice set up by Dr Garrett. GALLO called Dr Garrett's office and they confirmed a referral was faxed to [facility]. Lara VILLAR
[2021-04-21] MEDS: 0.9% Saline Lock 10 ML Syringe IV (13:43)
[2021-04-21 15:07] LABS: Pathologist Review Reviewed
== END 2021-04-21 14:37 | disposition hospice, home (50) | DRG 811 ==
LOC: ED 04-20 03:55 → PCU 04-20 04:32
PROVIDERS: Internal Medicine Gastroenterology; Admitting Provider Hospitalist; Emergency Provider Emergency Medicine; Visit Provider Internal Medicine
PROC: 0DJ08ZZ Inspection of Upper Intestinal Tract, Via Natural or Artificial Opening Endoscopic (ICD-10-PCS; CPT 43235; principal; 2021-04-20 11:25)
DX: D62 Acute posthemorrhagic anemia (principal); E43 Unspecified severe protein-calorie malnutrition; C16.0 Malignant neoplasm of cardia; K94.13 Enterostomy malfunction; I73.9 Peripheral vascular disease, unspecified; D63.0 Anemia in neoplastic disease; D47.2 Monoclonal gammopathy; I10 Essential (primary) hypertension; N40.0 Benign prostatic hyperplasia without lower urinary tract symptoms; G62.9 Polyneuropathy, unspecified; Z79.82 Long term (current) use of aspirin; Z80.3 Family history of malignant neoplasm of breast; Z87.891 Personal history of nicotine dependence; Z95.2 Presence of prosthetic heart valve; Z68.22 Body mass index [BMI] 22.0-22.9, adult
CPT/HCPCS: 36415; 36591; 74018; 80048; 83605; 85014; 85018; 85025; 85610; 85730; 86850; 86900; 86901; 86920; 86922; 87426; 93005; 97802; 99285; J7120; P9016; A4216